=== PATIENT | female | born 1940 | race Caucasian/White ===

== ENCOUNTER 2020-04-11 00:21 | Inpatient (IN) | payer MEDICARE, BC ==
[2020-04-11 00:53] LABS: #Lymphocytes 0.7 thou/uL (1.20-3.40); #Monocytes 0.6 thou/uL (0.11-0.59); #Neutrophils 12.2 thou/uL (1.40-6.50); %Basophils 0.3 % (0.0-1.0); %Eosinophils 0.2 % (0.0-10.0); %Monocytes 4.5 % (0.0-10.0); %Neutrophils 90.1 % (42.0-75.0); Mean Corpuscular HGB CONC 32.9 g/dL (32.0-36.0); Mean Corpuscular Hemoglobin 29.7 pg (27.0-31.0); Mean Corpuscular Volume 90.4 fL (78.0-98.0); Mean Platelet Volume 7.1 fL (7.4-10.4); Platelet Count 381 thou/uL (130-400); RBC Distribution Width 13.8 % (11.5-14.5); Red Blood Cell (RBC) Count 3.36 mill/uL (4.20-5.40); White Blood Cell (WBC) Count 13.5 thou/uL (4.8-10.8)
[2020-04-11] MEDS ORDERED: Diltiazem HCl 125 MG, Admixture Fee 1 EACH in Sodium Chloride 0.9% 100 ML IVPB SCH (01:00)
[2020-04-11] MEDS ORDERED: Fentanyl 100 MCG/2 ML VIAL ONE (01:13)
[2020-04-11 01:14] LABS: INR-International Normal Ratio 2.5; PTT 43.9 sec (22.9-36.1); Prothrombin Time 27.3 sec (12.0-14.7)
[2020-04-11 01:16] LABS: ALT (SGPT) 21 U/L (8-55); AST (SGOT) 18 U/L (5-34); Albumin 3.4 g/dL (3.4-4.8); Alkaline Phosphatase 129 U/L (40-110); Anion Gap 16 mmol/L (10-20); BUN (Urea Nitrogen) 12 mg/dL (9.8-20.1); Bilirubin, Total 0.5 mg/dL (0.2-1.2); Calc. Creatinine Clearance 0 mL/min (70-130); Calcium 8.9 mg/dL (7.8-10.44); Carbon Dioxide 24 mmol/L (23-31); Chloride 101 mmol/L (98-107); Estimated GFR-MDRD 72; Glucose 209 mg/dL (83-110); Potassium 3.7 mmol/L (3.5-5.1); Protein, Total 7.4 g/dL (6.0-8.3); Sodium 137 mmol/L (136-145)
[2020-04-11] MEDS ORDERED: Ondansetron PF 4 MG/2 ML Vial ONE ×2 (01:39→02:11)
[2020-04-11 01:53] LABS: Phosphorus 2.9 mg/dL (2.3-4.7)
[2020-04-11] MEDS ORDERED: Dextrose 50% Abboject 50 ML SYRINGE SLOW IVP PRN (02:37)
[2020-04-11] MEDS ORDERED: Promethazine HCl 25 MG/ML VIAL IM PRN (02:37)
[2020-04-11] MEDS ORDERED: Dextrose 5% in Water 1,000 ML IV PRN (02:37)
[2020-04-11] MEDS ORDERED: Morphine 2 MG/ML VIAL SLOW IVP PRN (02:37)
[2020-04-11] MEDS ORDERED: Ondansetron PF 4 MG/2 ML Vial IVP PRN (02:37)
[2020-04-11] MEDS ORDERED: Promethazine HCl 25 MG/ML VIAL ONE (02:44)
[2020-04-11 02:57] LABS: Hemoglobin A1c 5.4 % (4.0-6.0)
[2020-04-11] MEDS ORDERED: Cyclobenzaprine 10 MG TAB PO PRN (03:21)
[2020-04-11] MEDS ORDERED: Ibuprofen 600 MG TAB PO PRN (03:21)
[2020-04-11] MEDS ORDERED: traMADol HCl 50 MG TAB PO PRN (03:21)
--- NOTE | 2020-04-11 04:22 | HP ---
REQUESTING PHYSICIAN: Dr. Donovan. CONSULTS: Orthopedic Surgery, Dr. Manzano. PRIMARY CARE PHYSICIAN: None. LIQUID CENTER ASSEMBLER: Dr. Barnes at [facility]. CHIEF COMPLAINT: 1. Mechanical fall, no loss of consciousness, on Coumadin. 2. Atrial fibrillation with rapid ventricular response. HISTORY OF PRESENT ILLNESS: This is an 79-year-old female who presented to the emergency room after a ground level fall from her home. The patient does live in [place] alone, but her family checks on her multiple times a day. The patient reports that she was in her kitchen when she went to turn, she lost her balance, caused her to fall onto her right hip. The patient denies hitting her head or any loss of consciousness. The patient denies feeling weak, dizzy, lightheaded, or having shortness of breath or chest pain prior to falling. The patient was unable to ambulate and laid on the floor for approximately an hour until family arrived. The patient denies any other injuries. 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 The patient has not seen her primary the patient care physician in several years. The patient last saw her lard renderer in February. The patient states that she has not gotten out of the house due to the COVID pandemic. The patient reports approximately 6-8 months ago the squamous cell carcinoma onto her neck got worse. The patient has been treating the wound with Neosporin. Family has not seen the wound as the patient keeps it covered. The patient also reports severe worsening within the last month, in which the wound has gotten deeper and has spread. The patient also reports over the last month she has had facial drooping on the left side. The patient has also had vision changes and cannot close her left eye for the last three weeks. The patient also was in atrial fibrillation with rapid ventricular response at a rate of 130s. The patient was also given Cardizem 15 mg by EMS and started on a Cardizem drip at 5 mg an hour. The patient's rate is currently controlled at 107 and remains on a Cardizem drip at 7.5 mg an hour. The patient denies a history of diabetes, although her blood sugar is elevated. The patient was given 1 L normal saline bolus, Phenergan for nausea, Zofran, fentanyl 50 mcg for pain. REVIEW OF SYSTEMS: A 10-point review of systems is negative unless otherwise indicated in the above HPI. ALLERGIES: NO KNOWN DRUG ALLERGIES. MEDICATIONS: 1. Warfarin 5 mg once a day. 2. Diltiazem XR 180 once a day. 3. Lisinopril/hydrochlorothiazide 10/12.5 daily. 4. Calcium 500 mg daily. PAST MEDICAL HISTORY: Atrial fibrillation diagnosed in 2006, squamous cell carcinoma of left neck diagnosed in 2006, and hypertension. SURGICAL HISTORY: Cholecystectomy. SOCIAL HISTORY: The patient lives at home alone, denies alcohol use, denies illicit drug use, denies tobacco use. OBJECTIVE: VITAL SIGNS: Blood pressure 140/65, pulse 108, respirations 18, SpO2 of 94%, temperature 99.6. GENERAL: Elderly female, awake, alert, in no distress. HEENT: Head is atraumatic, extensive decay to the left lateral face involving the anterior angle of the mandible extending to the posterior neck. Decay goes to the subcutaneous tissue, muscle exposed in some areas, no visible bone, no surrounding redness noted. Left-sided facial droop, unable to lift eyebrow, unable to close left eye, left eye appears red with excessive tearing, reports visual changes in the left eye, extraocular muscles are intact, pupils are equal bilateral. ENT: Nose exam is normal, pharynx exam normal, no oral involvement, mucous membranes slightly dry, no difficulty swallowing, about half of the external auricle is decayed to the level of the tragus. The patient reports some hearing loss in her left ear. NECK: No cervical spine tenderness. Trachea is midline. RESPIRATORY: No respiratory distress, bilateral breath sounds clear, no wheezing, rales, or rhonchi. CARDIOVASCULAR: Irregularly irregular rate, tachycardic, no pedal edema. ABDOMEN: Soft, nontender, nondistended. PELVIS: Stable, tenderness to palpation, right hip. EXTREMITIES: Moves all extremities, neurovascularly intact x4, right lower extremity externally rotated. Mild shortening. NEUROLOGIC: GCS 15. Left-sided facial asymmetry, chronic. LABORATORY DATA: WBC 13.5, RBC 3.36, hemoglobin 10.0, hematocrit 30.3, platelets 380, PT 27.3, INR 2.5, APTT 43.9. Sodium 137, potassium 3.7, chloride 101, BUN 12, creatinine 0.77, estimated GFR 72. Glucose 209. Hemoglobin A1c 5.4. Lactate 1.4, calcium 8.9, magnesium 2.0, AST 18, ALT 21, alkaline phos 129, albumin 3.4. A 12-lead EKG, atrial fibrillation, no T-wave or ST-segment abnormality. Brain CT, no intracranial abnormalities. Chest x-ray pending. Right hip x-ray, right hip fracture. The official read is pending. ASSESSMENT: 1. Mechanical fall, on Coumadin. 2. Atrial fibrillation with rapid for ventricular response, currently rate controlled. 3. Large area of skin decay to the left face and back. 4. Right hip fracture. 5. Hyperglycemia, likely secondary to large skin decay. 6. History of atrial fibrillation, on Coumadin. 7. Hypertension. 8. Squamous cell carcinoma, left neck and face. PLAN: 1. Admit to the telemetry floor for continuous cardiac monitoring. 2. Continue Cardizem drip 7.5 mg an hour for rate control. 3. N.p.o. with possible plans for repair of right hip fracture by Orthopedic Surgery tomorrow in the morning. 4. Hold Coumadin. 5. Pain control and supportive care. 6. PT and OT to evaluate and treat postop. 7. Wound care to evaluate and treat large skin decay to the left face and neck. 8. Post acute screen as the patient will need rehab for continued physical and occupational therapy. The plan was discussed with the patient and her daughter who agrees. The plan will be discussed with the attending after this dictation. Job ID: [id number] [facility]
[2020-04-11 05:48] VITALS: BMI 27.4
[2020-04-11] MEDS: traMADol HCl 50 MG TAB PO SCH ×4 (06:04→21:53)
[2020-04-11] MEDS: Sodium Chloride 0.9% 1,000 ML IV SCH ×2 (06:15→15:31)
--- NOTE | 2020-04-11 07:11 | CT ---
PRELIMINARY REPORT/[facility]/EMERGENCY AFTER HOURS PROCEDURE: EXAM: CT Head Without Intravenous Contrast. CLINICAL HISTORY: 79 yo F with hx of afib on dilt and VKA and HTN on lisinopril presents via EMS after a mechanical fal l at home, tripped over uneven floor and feel; could not get up; crawled to the wall and flicked the light on and off until a neighbor saw and came for help. Now complains of right hip pain. Notable she has not seen a PCP in a very long but thinks she has cancer on the side of her face. TECHNIQUE: Axial computed tomography images of the head/brain without intravenous contrast. COMPARISON: None provided. FINDINGS: BRAIN: No acute intraparenchymal hemorrhage. No mass lesion. No CT evidence for acute territorial infarct. N o midline shift or extra-axial collection. Mild prominence of the sulci and ventricles. Mild subcor tical and periventricular white matter hypodensities. Arteriosclerosis. VENTRICLES: No hydrocephalus. ORBITS: The orbits are unremarkable. SINUSES AND MASTOIDS: The paranasal sinuses and mastoid air cells are clear. SOFT TISSUES: No significant facial or scalp soft tissue swelling evident. No radiopaque foreign body is seen. BONES: No acute skull fracture. IMPRESSION: No acute intracranial abnormality. Mild generalized cerebral atrophy. Mild subcortical and jv-ventricular white matter changes likely related to chronic ischemic vessel disease. ELECTRONICALLY SIGNED BY: Leoncio Alvarez MD Apr 11, 2020 1:57:41 AM CDT This report is intended for review by the ordering physician only, in accordance of law. If you recei ve this report in error, please call [facility] at [phone]. FINAL REPORT EMERGENCY AFTER HOURS CT OF THE BRAIN WITHOUT CONTRAST: FINDINGS/IMPRESSION: I agree with the findings and impression given in the preliminary report per [facility] physici an. No evidence of acute intracranial abnormality. POS: TIFFANIE
--- NOTE | 2020-04-11 08:15 | RAD ---
RIGHT HIP 2 VIEWS: Date: 04/11/2020 HISTORY: Fall with injury to right hip. Pain. FINDINGS/IMPRESSION: There is a comminuted, displaced intertrochanteric fracture of the right hip. POS: OFF
--- NOTE | 2020-04-11 08:16 | RAD ---
AP PELVIS: HISTORY: Trauma. Injury with pain. FINDINGS: There is a comminuted displaced intratrochanteric fracture involving the right hip. The bony pelvis appears intact. IMPRESSION: Fracture right hip. POS: OFF
[2020-04-11] MEDS: Acetaminophen 500 MG TAB PO SCH ×3 (08:24→17:22)
[2020-04-11] MEDS: Senokot S 8.6-50 MG TAB PO SCH ×2 (08:25→21:52)
[2020-04-11] MEDS: Gabapentin 100 MG CAP PO SCH ×3 (08:25→21:54)
--- NOTE | 2020-04-11 08:25 | RAD ---
PORTABLE CHEST: Date: 04/11/2020 HISTORY: Fall with hip fracture. COMPARISON: 11/29/2008. FINDINGS: Elevated left hemidiaphragm with left basilar atelectasis. Lungs otherwise appear clear. Heart is mil dly enlarged. The vascular markings are mildly engorged. IMPRESSION: Elevated left hemidiaphragm and left basilar atelectasis. Associated infiltrate not excluded. POS: OFF
[2020-04-11] MEDS: Famotidine/PF 20 mg/2ml Vial SLOW IVP SCH ×2 (08:26→21:54)
[2020-04-11] MEDS: Polyethylene Glycol 3350 17 GM Packet PO SCH (08:39)
--- NOTE | 2020-04-11 08:53 | CON ---
DATE OF CONSULTATION: 04/11/2020 CONSULTING PROVIDERS: 1. General Surgery. 2. Trauma Service. HISTORY OF PRESENT ILLNESS: Ms. Rodgers is an 79-year-old female who unfortunately lost her balance yesterday evening and fell. She was walking out of her kitchen when she tripped. She normally walks well with no assistive device. The patient landed on her right side. She had pain with movement. She was unable to get up. She required assistance and was taken to the emergency department by EMS. X-rays demonstrated a right intertrochanteric femur fracture. The patient has been admitted to the hospital. She is currently resting comfortably. Orthopedics has been consulted for her femoral fracture. She is undergoing medical workup. The patient is in chronic atrial fibrillation and is on Coumadin, she has been on Coumadin for many years. Her most recent INR was 2.5. REVIEW OF SYSTEMS: Positive for right hip pain, otherwise negative 10-point review of systems. ALLERGIES: NO KNOWN DRUG ALLERGIES. PAST MEDICAL HISTORY: Atrial fibrillation, on Coumadin for many years; history of squamous cell carcinoma; history of hypertension. PAST SURGICAL HISTORY: Cholecystectomy. SOCIAL HISTORY: The patient denies using any assistive device for ambulation. She denies alcohol, tobacco, or drug use. FAMILY MEDICAL HISTORY: Noncontributory. IMAGING DATA: X-rays of the right hip and pelvis demonstrated intertrochanteric femur fracture without significant displacement. The fracture does appear acute. PHYSICAL EXAMINATION: VITAL SIGNS: Temperature is 98.5, pulse is 107, respiratory rate is 20, oxygen saturation 94%, blood pressure is 142/76. GENERAL: She is alert and oriented, lying supine, in no apparent distress. HEENT: Normocephalic and atraumatic. RESPIRATORY: Breathing comfortably. ABDOMEN: Soft, nontender, and nondistended. CARDIOVASCULAR: Pulses palpable and regular. MUSCULOSKELETAL: Patient's right lower extremity is slightly shortened and externally rotated. She has pain with hip motion. She has pain with rotation. She is neurovascularly intact in the foot and ankle. She has palpable dorsalis pedis pulses. SKIN: Intact. IMPRESSION: Elderly female with right intertrochanteric femur fracture with a history of atrial fibrillation, on Coumadin. PLAN: At this point, I think the patient will benefit from surgical intervention. We will plan for dynamic hip screw fixation to stabilize the femur and allow early mobilization. Goal to prevent complications of prolonged bedrest. Risks have been reviewed with her. Unfortunately, we will be unable to proceed with surgery today because her INR is elevated. I would like this to drift down below 2.0. Once it is below 2, hopefully by tomorrow, we will proceed with surgery. She will have ongoing medical optimization and appropriate consultation services. She will be n.p.o. at midnight tonight. She should have DVT prophylaxis and antibiotic prophylaxis for surgery. Job ID: [id number]
[2020-04-11] MEDS ORDERED: Phytonadione 5 MG in Sodium Chloride 0.9% 50 ML IVPB SCH ×2 (09:00→15:00)
[2020-04-11] MEDS ORDERED: Metoprolol Tartrate 25 MG TAB PO SCH (09:00)
[2020-04-11] MEDS ORDERED: FLU VACC QS2020-21(65YR UP)/PF 240 MCG/0.7 ML SYRINGE IM ONE (09:00)
--- NOTE | 2020-04-11 18:36 | PRG ---
DATE OF SERVICE: 04/11/2020 SUBJECTIVE: The patient was seen this morning during rounds. She was lying in bed with no signs of acute distress. She reported her pain is well controlled. Her daughter was at the bedside. Reports that in 2017 or 2018, the patient had a diagnosis of squamous cell carcinoma to the left neck, but was not referred to an oncologist and has not had treatment. The patient does not regularly see a PCP, but sees her renewable energy engineer once a year. The patient lives independently and generally keeps her wound on the left side of her face covered. She fell on Coumadin and is pending INR normalization to go to the OR with Orthopedic Surgery for fixation of a right hip fracture. Upon our evaluation, she had no complaints. Her heart rate was in the 60s to 70s. Cardizem drip was discontinued and she was placed back on her home p.o. diltiazem. OBJECTIVE: VITAL SIGNS: Temperature 97.6, pulse 90, respirations 18, oxygen saturation 95% on 2 L nasal cannula, blood pressure 119/60. GENERAL: Well-appearing elderly female, lying in bed, resting comfortably with no signs of acute distress. PULMONARY: Equal chest rise and fall. Clear breath sounds bilaterally. No signs of acute respiratory distress. CARDIAC: Irregularly irregular rhythm. No murmurs, gallops, or rubs. GI: Abdomen is soft, nontender, nondistended. EXTREMITIES: 2+ pulses in all extremities. Gross motor and sensation are intact. No significant swelling noted. SKIN: The patient has a large wound to the left side of the neck, face, and ear that appears to be necrotizing. This is a chronic wound. LABORATORY FINDINGS: There are no new laboratory findings to discuss. DIAGNOSTIC FINDINGS: Echo completed today demonstrates EF of 45% to 50%, diastolic dysfunction indeterminate due to atrial fibrillation, dilated right ventricle, normal right ventricle systolic function, moderately dilated left atrium, moderately enlarged right atrium/mitral annular calcification is present, mild to moderate mitral regurgitation. Aortic valve sclerosis, but opens well. Moderate tricuspid regurgitation, elevated right ventricular systolic pressure estimated at 45 mmHg. Mild pulmonic regurgitation. ASSESSMENT: 1. Status post ground level fall, on Coumadin. 2. Right hip fracture. 3. Atrial fibrillation, rapid ventricular response, now rate controlled. 4. Chronic wound to left neck and ear, status post squamous cell carcinoma diagnosis in 2006. 5. History of atrial fibrillation, hypertension, and chronic neck wound. PLAN: The patient to have a regular diet. N.p.o. after midnight. Discontinue IV fluids. Oral pain medication. Metformin as needed for pain control. Restart the patient's home diltiazem. We have consulted Oncology, ENT, and palliative care. Repeat INR in the morning with additional blood work, goal is to be 2 or less. This patient was seen and evaluated by Dr. Arroyo this morning during rounds. Job ID: [id number]
--- NOTE | 2020-04-11 21:04 | CON ---
DATE OF CONSULTATION: REASON FOR CONSULTATION: Neglected squamous cell carcinoma. HISTORY OF PRESENT ILLNESS: Ms. Rodgers is an 79-year-old female who presented to the emergency room after a fall at her home. She had x-rays which showed a right intertrochanteric femur fracture. She was also in atrial fibrillation with RVR and started on diltiazem drip and admitted. Her surgery for her hip has been postponed until her INR was improved. She is on Coumadin for atrial fibrillation. Unfortunately, the patient was diagnosed with squamous cell carcinoma of the left neck in 2008. She did not receive any treatment. This appears to have been a skin cancer. She is a very poor historian. She has associated left facial droop. The neglected wound has started to erode her earlobe. She does admit to hearing loss in the ear. She states that she has had an open wound for several months, has been treating it with Neosporin. She has scleral edema of left eye and admits to occasional blurred vision. She underwent a CT scan of her brain, which showed no abnormalities. She states she has been independent, lives alone, and able to care for ADLs. She does have occasional pain. PAST MEDICAL HISTORY: 1. Atrial fibrillation. 2. Hypertension. 3. History of squamous cell carcinoma. PAST SURGICAL HISTORY: Cholecystectomy. ALLERGIES: NO KNOWN DRUG ALLERGIES. HOME MEDICATIONS: 1. Coumadin 5 mg daily. 2. Diltiazem 180 mg daily. 3. Lisinopril-hydrochlorothiazide daily. 4. Calcium daily. FAMILY HISTORY: No known history of cancer. SOCIAL HISTORY: . Lives alone with her family close by. No alcohol, tobacco, or illicit drug use. States she has not seen her physician in many years. REVIEW OF SYSTEMS: 12-point review of systems is negative except for noted in HPI. PHYSICAL EXAMINATION: VITAL SIGNS: Temperature 97.6, pulse is 70, respiratory rate 18, blood pressure is 112/59, she is 97% on 2 L. GENERAL: This is a well-developed female, in no acute distress. HEENT: Normocephalic, atraumatic. She has left scleral edema. NECK: A neglected wound on the left mid neck, which extends to mid ear and around to her mandible. Area is beefy red with slight bleeding, muscle is visible with. CV: Regular rate and rhythm. LUNGS: Clear anterior. ABDOMEN: Soft and nontender. Bowel sounds are positive. EXTREMITIES: She has pain in her right lower extremity. NEUROLOGIC: She has a left facial droop and blurred vision of her left eye. PERTINENT LABORATORY DATA AND X-RAYS: WBCs are 13.5, hemoglobin 10, hematocrit 30.3, platelet count 381,000. She has 90% neutrophils, 5% lymphocytes. PT is 27.3, INR is 2.5, PTT is 43.9. Sodium 137, potassium 3.7, chloride 101, CO2 is 24, BUN is 12, creatinine 0.77, lactic acid 1.4, calcium 8.9, bilirubin 0.5, AST is 18, ALT is 21, alkaline phosphatase is 129. Serum total protein 7.4, albumin 3.4, globulin 4. Radiology, per HPI. ASSESSMENT: 1. Neglected malignant lesion of the left neck and face, possibly squamous cell carcinoma. 2. Right femur fracture status post fall. DISCUSSION: The patient's left neglected left neck and facial cancer, most likely her squamous cell carcinoma. A biopsy is needed to confirm diagnosis. It clearly has invasion to the facial nerves as she is unable to close her left eyelid and has left facial droop. ENT has been consulted for their assistance. I did discuss with the patient that this is likely a cancer and that if she choose to pursue treatment after biopsy and scans, it would most likely include chemotherapy. She states she is interested in pain control and going home. She does have a daughter coming tomorrow and will discuss with her. Hospice may be the best option. I agree with Palliative Care consultation to help the patient to understand diagnosis and clarify goals of care. The patient's pain was currently controlled. The case has been discussed with Dr. Valdes, and we will follow along with her hospitalization. Thank you for the consult. Job ID: [id number] MTDD
[2020-04-12] MEDS: Acetaminophen 500 MG TAB PO SCH ×4 (00:32→18:42)
--- NOTE | 2020-04-12 02:17 | CON ---
DATE OF CONSULTATION: BRIEF HISTORY: This 79-year-old female who was told of a diagnosis of a cancer that she is unaware of what origin of the left face and left neck. She reports this started approximately 2 years ago and she reports that she did not ever see a surgical consultation due to travel limitations and also the patient at that time had chosen not to pursue treatment for this lesion. Over the past year, the mass has turned into an extremely necrotic and invasive lesion involving her left face. She is presenting to the hospital after a hip fracture and currently planned for ORIF of hip fracture tomorrow. PAST MEDICAL HISTORY: Hypertension. PAST SURGICAL HISTORY: No history of head and neck surgeries to our knowledge or patient's knowledge. MEDICATIONS: See attached medication list. PHYSICAL EXAMINATION: Patient is resting comfortably in bed. 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 Overall, the mass is 20 cm x 15 cm with no overlying skin left in this area. Nasal cavity is clear anteriorly . Flexible laryngoscopy was performed at bedside, which shows no mucosal lesions of nasal cavity, nasopharynx, bilateral true vocal cords, base of tongue, tonsils and piriform sinus and hypopharyngeal mucosa are all intact. 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 An incisional biopsy was performed at the bedside today. I will review the pathology and review radiology on Tuesday and continue and begin discussions on the patient regarding her diagnosis. This is most likely a nonsurgical resectable lesion and palliative radiation or chemotherapy will likely be her only option. Job ID: [id number]
[2020-04-12] MEDS: traMADol HCl 50 MG TAB PO SCH ×4 (03:52→20:19)
[2020-04-12 04:23] LABS: #Eosinphils 0.2 thou/uL (0.0-0.7); #Monocytes 0.7 thou/uL (0.11-0.59); #Neutrophils 4.6 thou/uL (1.40-6.50); %Basophils 0.5 % (0.0-1.0); %Eosinophils 2.3 % (0.0-10.0); %Lymphocytes 15.3 % (21.0-51.0); %Monocytes 10.2 % (0.0-10.0); %Neutrophils 71.6 % (42.0-75.0); Hemoglobin 9.9 g/dL (12.0-16.0); Mean Corpuscular HGB CONC 31.6 g/dL (32.0-36.0); Mean Corpuscular Hemoglobin 29.3 pg (27.0-31.0); Mean Corpuscular Volume 92.7 fL (78.0-98.0); Mean Platelet Volume 6.9 fL (7.4-10.4); Platelet Count 340 thou/uL (130-400); RBC Distribution Width 14.1 % (11.5-14.5); Red Blood Cell (RBC) Count 3.39 mill/uL (4.20-5.40); White Blood Cell (WBC) Count 6.5 thou/uL (4.8-10.8)
[2020-04-12 04:28] LABS: INR-International Normal Ratio 1.5; PTT 36.5 sec (22.9-36.1); Prothrombin Time 18.8 sec (12.0-14.7)
[2020-04-12 04:50] LABS: Anion Gap 11 mmol/L (10-20); BUN (Urea Nitrogen) 10 mg/dL (9.8-20.1); Calc. Creatinine Clearance 78 mL/min (70-130); Calcium 8.5 mg/dL (7.8-10.44); Carbon Dioxide 22 mmol/L (23-31); Chloride 104 mmol/L (98-107); Estimated GFR-MDRD 84; Glucose 128 mg/dL (83-110); Magnesium 1.9 mg/dL (1.6-2.6); Phosphorus 3.2 mg/dL (2.3-4.7); Potassium 4.1 mmol/L (3.5-5.1); Sodium 133 mmol/L (136-145)
[2020-04-12] MEDS ORDERED: CEFAZOLIN 2 GM in Premix Bag 1 BAG IVPB SCH (08:00)
[2020-04-12 08:29] LABS: SARS-CoV-2 NAA Rapid Test Not Detected (NotDetected)
[2020-04-12] MEDS ORDERED: Magnesium 2 GM/50 ML 2 GM in Premix Bag 1 BAG IVPB SCH (08:45)
[2020-04-12] MEDS ORDERED: DILTIAZEM HCL 180 MG PO SCH (09:00)
[2020-04-12] MEDS: Famotidine/PF 20 mg/2ml Vial SLOW IVP SCH ×2 (09:01→20:19)
[2020-04-12] MEDS: Senokot S 8.6-50 MG TAB PO SCH ×2 (09:01→20:19)
[2020-04-12] MEDS: Gabapentin 100 MG CAP PO SCH ×3 (09:01→20:20)
[2020-04-12] MEDS: Polyethylene Glycol 3350 17 GM Packet PO SCH (09:01)
[2020-04-12] MEDS ORDERED: Ondansetron PF 4 MG/2 ML Vial ONE (09:20)
[2020-04-12] MEDS ORDERED: Rocuronium Bromide 10 MG/ML (10ML VIAL) ONE (09:20)
[2020-04-12] MEDS ORDERED: Lidocaine 1% PF 5 ML VIAL ONE (09:20)
[2020-04-12] MEDS ORDERED: Dexamethasone 20 MG/5 ML VIAL ONE (09:20)
[2020-04-12] MEDS ORDERED: PHENYLEPHRINE-NS 100 MCG/ML 10 ML SYRINGE ONE (09:20)
[2020-04-12] MEDS ORDERED: PROPOFOL 200 MG/20 ML VIAL ONE (09:20)
[2020-04-12] MEDS ORDERED: Glycopyrrolate 0.2 MG/ML 5 ML SYRINGE ONE (09:20)
[2020-04-12] MEDS ORDERED: Lidocaine 2% Jelly 5 ML TUBE ONE (10:51)
[2020-04-12] MEDS ORDERED: Fentanyl 100 MCG/2 ML VIAL ONE ×2 (10:51→13:51)
[2020-04-12] MEDS ORDERED: Promethazine HCl 25 MG/ML VIAL IM PRN (13:34)
[2020-04-12] MEDS ORDERED: Promethazine HCl 25 MG/ML VIAL SLOW IVP PRN (13:34)
[2020-04-12] MEDS ORDERED: Ondansetron HCl/PF 4 MG/2 ML Vial IVP PRN (13:34)
--- NOTE | 2020-04-12 13:36 | OP ---
DATE OF PROCEDURE: 04/12/2020 PROCEDURE PERFORMED: Right femur intertrochanteric fracture intramedullary nail. PREOPERATIVE DIAGNOSIS: Right femur intertrochanteric fracture. POSTOPERATIVE DIAGNOSIS: Right femur intertrochanteric fracture. COMPLICATIONS: None. ESTIMATED BLOOD LOSS: 150 mL. IMPLANTS: Synthes short trochanteric nail, size 11 mm with helical blade. INDICATIONS FOR OPERATION: Ms. Rodgers is an 79-year-old female, who has fallen and fractured her right intertrochanteric femur. She has been indicated for intramedullary nail fixation to restore anatomic alignment, promote healing, and promote early mobilization. Goal is to prevent complications of prolonged bed rest. DESCRIPTION OF OPERATION: Ms. Rodgers was identified in the preoperative holding area. Her correct extremity was marked. She was carried to the operating room. She was positioned supine. General anesthesia was induced. A multidisciplinary time-out was performed. The right lower extremity was prepped and draped in sterile fashion. We began the procedure with right hip incision. We dissected down through the subcutaneous tissues to the tip of the trochanter. We then used intraoperative x-ray to obtain an appropriate start point for our guidewire. This was inserted from proximal to distal. We overdrilled the guidewire. We then inserted our 11 mm short trochanteric nail. We took x-ray images confirming placement. At this point, we placed a guidewire through our appropriate guide in the centered position of the femoral head. We measured the length and then impacted our helical blade. This was placed in a dynamic position. Finally, we placed a distal Crosslock screw. This completed the operation. We took final x-ray images. We thoroughly irrigated all wounds and closed in layers. A sterile dressing was applied. The academic assistant surgeon was responsible for positioning the patient, preparing the injured extremity, applying the tourniquet, and assisting in preparation for surgery. The academic assistant was instrumental in reducing the injured limb by applying traction and reduction maneuvers as well as holding retractors and reduction tools. The academic assistant also was instrumental in assisting in exposure throughout the operation using appropriate retractors. The academic assistant participated in closure of the operative site as well as dressing application and splint application. Job ID: [id number]
--- NOTE | 2020-04-12 15:44 | RAD ---
Exam: XR Hip Rt 2-3 View HISTORY: Right hip trochanteric nail placement COMPARISON: 04/11/2020. FINDINGS/IMPRESSION: 4 intraoperative fluoroscopic images of the right hip are submitted. An intramedullary cr and dynami c compression screw as well as distal interlocking screw now transfix the previously noted comminuted and displaced intertrochanteric right hip fracture. There is improvement in alignment of t he fracture fragments. Correlation with intraoperative findings is recommended. Fluoroscopy: Time-45.6 seconds Dose-8.86 mGy
--- NOTE | 2020-04-12 16:52 | PRG ---
DATE OF SERVICE: 04/12/2020 SUBJECTIVE: The patient was seen this afternoon postoperatively. She was sitting up in bed with no signs of acute distress. She is after fixation of her right hip fracture by Dr. Kothari. She reports her pain is well controlled and she is hungry. Her daughters at the bedside ordering her lunch. The patient educated on incentive spirometry use. The patient was pulling about 1000. She has been evaluated by ENT and Hematology/Oncology. Palliative Care consult is in. We are pending their evaluation. OBJECTIVE: VITAL SIGNS: Temperature 97.9, pulse 94, respirations 20, oxygen saturation 95% on 2 L nasal cannula, and blood pressure 120/67. GENERAL: Well-appearing elderly female, sitting up in bed, with no signs of acute distress. PULMONARY: Equal chest rise and fall. Clear breath sounds bilaterally. No signs of acute respiratory distress. CARDIAC: Regular rate and rhythm. GI: Abdomen is soft, nontender, and nondistended. EXTREMITIES: 2+ pulses in all extremities. Gross motor and sensations intact. No significant swelling noted. NEUROLOGIC: GCS is 15. SKIN: The patient with large wound to left neck and face with dressing in place. No signs of oozing. DIAGNOSTIC FINDINGS: There are no new diagnostic findings to report. ASSESSMENT: 1. Status post ground-level fall, on Coumadin. 2. Right-sided intertrochanteric femur fracture status post repair. 3. Necrotic wound to the left neck and ear, present on admission. 4. History of atrial fibrillation. 5. Hypertension. 6. Squamous cell cancer since 2008. PLAN: Continue current diet and pain regimen. Continue physical and occupational therapy. Continue home medications as indicated. We will restart the patient on her Coumadin and bridge with Lovenox if she remains hemodynamically stable and there are no signs of blood loss tomorrow. We will start physical and occupational therapy. The patient will likely need discharge to acute rehab facility. She will also receive sodium, phosphorus, and magnesium replacements today. Job ID: [id number]
[2020-04-12] MEDS: CEFAZOLIN 2 GM in Premix Bag 1 BAG IVPB SCH (20:19)
[2020-04-13] MEDS: Acetaminophen 500 MG TAB PO SCH ×4 (00:43→18:21)
[2020-04-13] MEDS: CEFAZOLIN 2 GM in Premix Bag 1 BAG IVPB SCH (05:23)
[2020-04-13] MEDS: traMADol HCl 50 MG TAB PO SCH ×3 (05:24→18:20)
[2020-04-13 05:40] LABS: #Lymphocytes 0.7 thou/uL (1.20-3.40); #Monocytes 0.5 thou/uL (0.11-0.59); #Neutrophils 7.2 thou/uL (1.40-6.50); %Basophils 0.1 % (0.0-1.0); %Eosinophils 0.1 % (0.0-10.0); %Lymphocytes 8.1 % (21.0-51.0); %Monocytes 5.8 % (0.0-10.0); %Neutrophils 85.9 % (42.0-75.0); Hemoglobin 8.5 g/dL (12.0-16.0); Mean Corpuscular HGB CONC 31.9 g/dL (32.0-36.0); Mean Corpuscular Hemoglobin 29.4 pg (27.0-31.0); Mean Platelet Volume 7.3 fL (7.4-10.4); Platelet Count 381 thou/uL (130-400); RBC Distribution Width 13.9 % (11.5-14.5); Red Blood Cell (RBC) Count 2.88 mill/uL (4.20-5.40); White Blood Cell (WBC) Count 8.4 thou/uL (4.8-10.8)
[2020-04-13 05:50] LABS: INR-International Normal Ratio 1.3; Prothrombin Time 16.3 sec (12.0-14.7)
[2020-04-13 05:51] LABS: PTT 41.7 sec (22.9-36.1)
[2020-04-13 06:00] LABS: Anion Gap 10 mmol/L (10-20); BUN (Urea Nitrogen) 10 mg/dL (9.8-20.1); Calc. Creatinine Clearance 80 mL/min (70-130); Calcium 8.1 mg/dL (7.8-10.44); Carbon Dioxide 27 mmol/L (23-31); Chloride 104 mmol/L (98-107); Estimated GFR-MDRD 87; Glucose 181 mg/dL (83-110); Magnesium 2.1 mg/dL (1.6-2.6); Potassium 4.7 mmol/L (3.5-5.1); Sodium 136 mmol/L (136-145)
--- NOTE | 2020-04-13 06:43 | PRG ---
DATE OF SERVICE: 04/13/2020 SUBJECTIVE: The patient is currently on the surgical floor. She is status post ground level fall where she sustained a right intertrochanteric femur fracture. She underwent operative intervention today, which she tolerated well. She originally was admitted to the telemetry floor. She had presented in atrial fibrillation with rapid ventricular response. She has been rate controlled to include postoperatively. Postoperatively, she is tolerating diet. Her pain is controlled. OBJECTIVE: Her vital signs are stable and she is afebrile. ASSESSMENT AND PLAN: The patient also, of note, has undergone evaluation by ENT and Oncology for neck and face squamous cell. She is currently awaiting biopsy results for that. Plan will be to continue supportive care and await placement decision and input from ENT and Oncology. Job ID: [id number]
[2020-04-13] MEDS ORDERED: PHOS-NAK 1 PKT PACK PO SCH (08:30)
[2020-04-13] MEDS: Polyethylene Glycol 3350 17 GM Packet PO SCH (09:08)
[2020-04-13] MEDS: Senokot S 8.6-50 MG TAB PO SCH (09:09)
[2020-04-13] MEDS: Famotidine/PF 20 mg/2ml Vial SLOW IVP SCH ×2 (09:09→20:59)
[2020-04-13] MEDS: Gabapentin 100 MG CAP PO SCH ×3 (09:09→20:59)
--- NOTE | 2020-04-13 15:50 | PRG ---
DATE OF SERVICE: 04/13/2020 SUBJECTIVE: The patient was seen this morning during rounds. She was sitting up in bed, getting ready to work with Physical Therapy. She reported she slept well overnight and states her pain is well controlled. Denies nausea, vomiting, chest pain, shortness of breath, dizziness, lightheadedness, weakness, fatigue. OBJECTIVE: VITAL SIGNS: Temperature 97.9, pulse 91, respirations 16, oxygen saturation 93% on room air, blood pressure 111/68. GENERAL: Well-appearing elderly female, sitting up in bed with no signs of acute distress. PULMONARY: Equal chest rise and fall, clear breath sounds bilaterally. No signs of acute respiratory distress. CARDIAC: Regular rate and rhythm. GI: Abdomen soft, nontender, nondistended. EXTREMITIES: 2+ pulses in all extremities. Gross motor and sensations intact. No significant swelling noted. NEUROLOGIC: GCS is 15. Face, patient has left-sided facial and neck wound which is chronic with left-sided facial droop and eye droop. This is chronic as well. LABORATORY FINDINGS: White count 8.4, hemoglobin 8.5, hematocrit 26.5, platelets 281. Sodium 136, potassium 4.7, chloride 104, bicarb 27, BUN 10, creatinine 0.65, glucose 181. Phosphorus 3.0, magnesium 2.1. DIAGNOSTIC FINDINGS: There are no new diagnostic findings to report. ASSESSMENT: 1. Status post ground level fall on Coumadin. 2. Right intertrochanteric femur fracture, status post repair. 3. Atrial fibrillation, RVR, rate controlled. 4. Necrotic wound to left neck and ear. 5. History of atrial fibrillation, hypertension, squamous cell carcinoma of the neck diagnosed in 2008. PLAN: Continue current diet and pain regimen. Continue physical and occupational therapy. Continue to watch hemoglobin and vital signs. We will continue to hold Coumadin for another day as the patient's hemoglobin dropped by more than 1 postoperatively. The patient is pending discharge to acute rehab facility. We are also waiting for further recommendations from ENT and Oncology for the patient's left-sided wound likely due to skin cancer. Job ID: [id number]
[2020-04-13] MEDS ORDERED: traMADol HCl 50 MG TAB PO SCH ×2 (23:59)
[2020-04-14] MEDS: Senokot S 8.6-50 MG TAB PO SCH ×3 (00:17→21:52)
[2020-04-14] MEDS: Acetaminophen 500 MG TAB PO SCH ×4 (00:18→18:50)
[2020-04-14] MEDS: traMADol HCl 50 MG TAB PO SCH ×4 (00:18→18:51)
[2020-04-14 05:08] LABS: Hemoglobin 7.7 g/dL (12.0-16.0); Mean Corpuscular HGB CONC 31.7 g/dL (32.0-36.0); Mean Corpuscular Hemoglobin 29.7 pg (27.0-31.0); Mean Corpuscular Volume 93.6 fL (78.0-98.0); Mean Platelet Volume 6.9 fL (7.4-10.4); Platelet Count 369 thou/uL (130-400); RBC Distribution Width 13.8 % (11.5-14.5); White Blood Cell (WBC) Count 7.4 thou/uL (4.8-10.8)
[2020-04-14 05:14] LABS: INR-International Normal Ratio 1.4; PTT 37.6 sec (22.9-36.1); Prothrombin Time 17.3 sec (12.0-14.7)
[2020-04-14 05:40] LABS: Anion Gap 11 mmol/L (10-20); BUN (Urea Nitrogen) 15 mg/dL (9.8-20.1); Calc. Creatinine Clearance 68 mL/min (70-130); Calcium 8.4 mg/dL (7.8-10.44); Carbon Dioxide 27 mmol/L (23-31); Chloride 101 mmol/L (98-107); Estimated GFR-MDRD 72; Glucose 150 mg/dL (83-110); Phosphorus 2.9 mg/dL (2.3-4.7); Potassium 4.6 mmol/L (3.5-5.1); Sodium 134 mmol/L (136-145)
[2020-04-14] MEDS ORDERED: PHOS-NAK 1 PKT PACK PO SCH (07:45)
[2020-04-14] MEDS: Famotidine/PF 20 mg/2ml Vial SLOW IVP SCH (08:30)
[2020-04-14] MEDS: Gabapentin 100 MG CAP PO SCH ×3 (08:30→20:48)
[2020-04-14] MEDS: Polyethylene Glycol 3350 17 GM Packet PO SCH (08:31)
[2020-04-14] MEDS: Famotidine 20 MG TAB PO SCH ×2 (09:15→20:49)
[2020-04-14] MEDS: Metoprolol Tartrate 25 MG TAB PO SCH ×2 (09:35→20:49)
[2020-04-14] MEDS: Aspirin 81 mg Enteric Coated Tablet PO SCH ×2 (09:36→20:48)
--- NOTE | 2020-04-14 14:16 | PDOC.FMACP ---
Advance Care Planning - Note Summary: Advanced Care Planning was discussed. The diagnosis, prognosis and goals of care were discussed. Appropriate forms and documentation to accomplish the goals of care were discussed. All questions were answered. The Palliative Care Team will be engaged to assist with completion of any outstanding forms that are needed.
--- NOTE | 2020-04-14 14:18 | PDOC.FMACP ---
Advance Care Planning - Problem (1) Hip fracture, right Status: Acute Code(s): S72.001A - FRACTURE OF UNSP PART OF NECK OF RIGHT FEMUR, INIT (2) Atrial fibrillation Status: Acute Code(s): I48.91 - UNSPECIFIED ATRIAL FIBRILLATION (3) Squamous cell carcinoma Status: Acute Code(s): YAS6550 - (4) Palliative care encounter Status: Acute Code(s): Z51.5 - ENCOUNTER FOR PALLIATIVE CARE - Note Participants: patient, palliative care Summary: Palliative Care introduced Advanced Care Planning. The diagnosis, prognosis and goals of care were discussed. Appropriate forms and documentation to accomplish the goals of care were discussed. All questions were answered. Confirmed patient lived independently in a private home setting. Palliative Care completed MPOA and left Directive to Physician. Ms Rodgers states "I know what I want, but want to discuss and complete when my daughter is here". Directive information left for review. *Palliative Care will follow up 04/15 when patient daughter arrives and c omplete Directive to Physician and readdress resuscitation status. *Will further address GOC paired with patient age, multiple morbidities and impact of coumadin therapy paired with declining functional status. *CM note states referral sent to SNF for skilled inquiry. Please also refer to Palliative Care notes in note section. Time Spent (mins): 20
--- NOTE | 2020-04-14 19:03 | PRG ---
DATE OF SERVICE: 04/14/2020 SUBJECTIVE: The patient was seen this morning during rounds. Earlier in the morning, nurse reported the patient is tachycardic with heart rate in the 120s. EKG demonstrated atrial fibrillation. The patient previously on diltiazem. This is the second time she has not been rate controlled. She received 12.5 mg of p.o. metoprolol and she is now rate controlled. At the time of our evaluation, she reported no pain. She was asking to be discharged. We told her that we would like ENT, Hem/Onc, and palliative care to give further recommendations based off her biopsy results. She was in agreement to hear them out. OBJECTIVE: VITAL SIGNS: Temperature 98.7, pulse 91, respirations 15, oxygen saturation 94% on room air, blood pressure 135/77. GENERAL: Well-appearing elderly female, sitting up in bed with no signs of acute distress. PULMONARY: Equal chest rise and fall. Clear breath sounds bilaterally. No signs of acute respiratory distress. CARDIAC: Regular rate and rhythm. GI: Abdomen is soft, nontender, nondistended. EXTREMITIES: 2+ pulses in all extremities. Gross motor and sensation are intact. SKIN: The patient has open necrotic wound to left face, ear, and neck. This is stable. LABORATORY FINDINGS: White count 7.4, hemoglobin 7.7, hematocrit 24.3, platelets 369. Sodium 134, potassium 4.6, chloride 101, bicarb 27, BUN 15, creatinine 0.77, glucose 150, phosphorus 2.9, magnesium 2.0. DIAGNOSTIC FINDINGS: There are no new diagnostic findings to report. ASSESSMENT: 1. Status post ground level fall, on Coumadin. 2. Right intertrochanteric femur fracture, status post repair. 3. Atrial fibrillation, RVR. 4. Necrotic left-sided neck and face wound. 5. History of atrial fibrillation, hypertension, squamous cell carcinoma to left neck in 2008. 6. Acute blood loss anemia. PLAN: Continue current diet and pain regimen. Add metoprolol 12.5 mg b.i.d. with hold parameters as this is the second time the patient has gone into uncontrolled atrial fibrillation. We will send her to see Dr. Levi Barnes one week after discharge. 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 We are pending further recommendations by ENT and Hem/Onc before discharge as the patient does not follow up and we want to make sure that she has all of the information needed to make the best decisions for her left-sided necrotic neck wound. Palliative Care is also evaluating. At the time when she is ready for discharge, she will go to [facility] [place] bed. In the meantime, the patient will be on aspirin as her hemoglobin continues to downtrend. We will restart her Coumadin and bridge once her hemoglobin has stabilized. This patient was seen and evaluated by Dr. Arroyo and myself this morning during rounds. Job ID: [id number] [facility]
[2020-04-15] MEDS: Acetaminophen 500 MG TAB PO SCH ×5 (00:13→23:26)
[2020-04-15] MEDS: traMADol HCl 50 MG TAB PO SCH ×4 (00:13→17:45)
[2020-04-15 06:02] LABS: Hemoglobin 7.7 g/dL (12.0-16.0); Mean Corpuscular HGB CONC 30.8 g/dL (32.0-36.0); Mean Corpuscular Hemoglobin 28.8 pg (27.0-31.0); Mean Corpuscular Volume 93.3 fL (78.0-98.0); Mean Platelet Volume 7.2 fL (7.4-10.4); Platelet Count 451 thou/uL (130-400); RBC Distribution Width 14.1 % (11.5-14.5); Red Blood Cell (RBC) Count 2.67 mill/uL (4.20-5.40); White Blood Cell (WBC) Count 7.6 thou/uL (4.8-10.8)
[2020-04-15 06:48] LABS: INR-International Normal Ratio 1.3; Prothrombin Time 16.6 sec (12.0-14.7)
[2020-04-15 06:49] LABS: PTT 42.3 sec (22.9-36.1)
[2020-04-15] MEDS: Famotidine 20 MG TAB PO SCH ×2 (07:30→20:28)
[2020-04-15] MEDS: Aspirin 81 mg Enteric Coated Tablet PO SCH (07:30)
[2020-04-15] MEDS: Gabapentin 100 MG CAP PO SCH ×3 (07:31→20:28)
[2020-04-15] MEDS: Polyethylene Glycol 3350 17 GM Packet PO SCH (07:31)
[2020-04-15] MEDS: Senokot S 8.6-50 MG TAB PO SCH ×2 (07:31→22:47)
[2020-04-15] MEDS: Metoprolol Tartrate 25 MG TAB PO SCH ×2 (07:31→20:28)
--- NOTE | 2020-04-15 08:46 | PRG ---
DATE OF SERVICE: 04/15/2020 SUBJECTIVE: Marita is an 79-year-old female postop day 3 from a right hip short trochanteric nail fixation for intertrochanteric hip fracture. She is ambulating distances between 16 and 20 feet. Palliative Care has been consulted and she is relatively slow to get around and move. OBJECTIVE: VITAL SIGNS: Temperature 98.2, pulse 88, respiratory rate 20, blood pressure is 115/62. She is alert and oriented to person, place, time, and situation. Responsive and appropriate with examiner. Incision is clean. Little bit of drainage is noted at the superior aspect of the 2 incisions. We will remove this and re-dress. LABORATORY DATA: Hemoglobin and hematocrit 7.7 and 24.9. IMPRESSION: 1. An 79-year-old female postop day 3 right hip trochanteric nail fixation for intertrochanteric fracture. 2. Hyperglycemia. 3. Mild hyponatremia. 4. The patient is slow to progress with ADLs and independence with ambulation. PLAN: 1. Either inpatient skilled facility or rehabilitation would be best. 2. Continue current care. Continue to follow for hemorrhage and pain control. Job ID: [id number]
[2020-04-15] MEDS: Enoxaparin Sodium 80 MG/0.8 ML SYRINGE SC SCH ×2 (10:02→20:29)
[2020-04-15] MEDS: Ascorbic Acid 500 mg Chewable Tablet PO SCH ×2 (10:11→20:28)
[2020-04-15] MEDS: Ferrous Sulfate 325 MG TAB PO SCH ×2 (10:11→20:28)
[2020-04-15 11:35] LABS: Iron 27 ug/dL (50-170); Iron Binding Capacity, Total 245 mcg/dL (265-497)
[2020-04-15 11:55] LABS: Ferritin 78.13 ng/mL (10-291)
--- NOTE | 2020-04-15 14:13 | PRG ---
DATE OF SERVICE: 04/15/2020 Patient was seen with Dr. Mati Arroyo on morning rounds. SUBJECTIVE: Ms. Rodgers is an 79-year-old female who is hospital day #4 post injury day #4, history of atrial fibrillation, fall, with operative repair to her right intertrochanteric femur, found this morning sitting up in bed, in no acute distress. She states that she feels better. Hemoglobin has been stable. The patient has had a biopsy of her necrotic wound to the left side of her face and we are waiting on pathology results. ENT and Heme-Onc consultation. Verbalized understanding the same. Pain is generally controlled. We are pending approval for [facility] that she has actually been approved for. OBJECTIVE: VITAL SIGNS: Temperature is 98.2, blood pressure 115/62, heart rate is 88, respiratory rate is 20, saturating 94% on 1 L oxygen nasal cannula. GENERAL: An 79-year-old female, sitting up, no acute distress. HEENT: Has left-sided facial droop and dressings noted to the left side of the face and neck. Trachea is midline. RESPIRATORY: Equal rise and fall. No respiratory distress. CARDIOVASCULAR: Regular rhythm. NEUROLOGIC: Alert and oriented. GCS is 15. PSYCHIATRIC: Normal mood and affect. LABORATORY DATA: Today white blood cell count is 7.6, platelets are 451. Hemoglobin and hematocrit are 7.7 and 24.9 respectively. Chemistries: Folate of 12.4, vitamin B12 of 1651, ferritin is 78.3. INR is 1.3 today. ASSESSMENT: 1. Status post fall on Coumadin. 2. Right intertrochanteric femur fracture status post ORIF. 3. Atrial fibrillation with RVR, improved rate control. 4. Necrotic left-sided neck and face wound likely neoplastic in nature. 5. History of hypertension, squamous cell carcinoma of the left neck in 2009, acute blood loss anemia. PLAN: 1. ENT and Heme-Onc are consulted, appreciate recommendations once pathology is back. 2. Continue pain regimen. 3. Unsure if patient will want treatment, but need to have the same. 4. Has been approved for [facility]. She will be discharged once her workup in the hospital is complete. 5. Hemoglobin is stable. Therefore, we will bridge her with Lovenox back to her Coumadin. I have discussed with pharmacy and they are going to dose this. Appreciate their assistance. 6. Continue all other supportive care. I answered questions of the patient at the bedside. No family to update at this time. Coordinated with bedside RN. Job ID: [id number]
[2020-04-15] MEDS: Warfarin Sodium 5 MG TAB PO SCH (17:44)
[2020-04-16] MEDS: traMADol HCl 50 MG TAB PO SCH ×5 (00:18→23:48)
[2020-04-16] MEDS: Acetaminophen 500 MG TAB PO SCH ×5 (05:45→23:49)
[2020-04-16] MEDS: Gabapentin 100 MG CAP PO SCH ×3 (08:21→21:25)
[2020-04-16] MEDS: Senokot S 8.6-50 MG TAB PO SCH ×2 (08:21→21:24)
[2020-04-16] MEDS: Polyethylene Glycol 3350 17 GM Packet PO SCH (08:22)
[2020-04-16] MEDS: Famotidine 20 MG TAB PO SCH ×2 (08:22→21:25)
[2020-04-16] MEDS: Ferrous Sulfate 325 MG TAB PO SCH ×2 (08:22→21:25)
[2020-04-16] MEDS: Ascorbic Acid 500 mg Chewable Tablet PO SCH ×2 (08:22→21:25)
[2020-04-16] MEDS: Metoprolol Tartrate 25 MG TAB PO SCH ×2 (08:22→21:26)
[2020-04-16] MEDS: Enoxaparin Sodium 80 MG/0.8 ML SYRINGE SC SCH ×2 (08:23→21:24)
--- NOTE | 2020-04-16 11:23 | PDOC.PALCO ---
Palliative Care Consult - Consult Details Requesting Physician: Trauma Services Reason for Consult: goals of care, advance directives assistance, family support, complex decision-making - Pertinent HPI Ms Rodgers is an 79 year old female who experienced a mechanical fall in her private home setting in [place], family close in proximity with frequent contact. Known Coumadin therapy, negative for loss of consciousness. On presentation to the emergency room she was also noted to have extensive deterioration of left aspect of face, diagnosed with squamous cell carcinoma in 2006 withe no follow up. Has been isolated since August secondary to Covid pandemic. Ms Bev villafuerte area has progressed in last month, she has kept it covered with gauze and family has not seen. Also in emergency room she was noted to have atrial fibrillation with RVR. She was admitted for right hip fracture secondary to mechanical fall, further evaluation of skin decay to left face and back/suspected squamous cell carcinoma, hyperglycemia, atrial fib. - Pertinent PMH Atrial fibrillation, squamous cell carcinoma diagnosed 2006, hypertension - Social History Smoking Status: Never smoker Smoking: no tobacco exposure Alcohol Use: none Drug Use History: none Living Situation: independent - Medications MAR Reviewed: Yes - Allergies Allergies/Adverse Reactions: Allergies Allergy/AdvReac Type Severity Reaction Status Date / Time No Known Allergies Allergy Unverified 04/11/20 00:58 - Subjective States pain to right hip is a 2 out of 10. Fair appetite, denies any difficulty in intake. Gauze dressing over left area of skin breakdown. Post right hip fixation for fracture. Biopsy pending, oncology seeing patient. Hemoglobin stable. - ROS Constitutional: alert Eyes: other (left ectroprion) ENT: other (denies difficulity swallowing or irritation to throat, hearing loss left ) Respiratory: other (negative for shortness of breath) Cardiology: other (negative for chest discomfort or palpitations) Gastrointestinal: other (negative for nausea or vomiting) Musculoskeletal: limited mobility, other (hip pain/right) Neurological: other (denies numbness to lower extremitites. left facial droop) Skin: other (wound to left aspect of face/refer to wound photo) - Objective Vital Signs: Vital Signs - Most Recent Temp Pulse Resp BP Pulse Ox 97.8 F 100 18 124/77 95 04/16/20 07:36 04/16/20 07:36 04/16/20 07:36 04/16/20 07:36 04/16/20 07:36 Palliative Performance Scale: 50 - Physical Exam Constitutional: NAD, ill appearing Deviation from normal: left visual and hearing changes, facial droop to mouth Respiratory: clear to auscultation bilateral, no wheezing, unlabored breathing Cardiovascular: irregular Gastrointestinal: soft, non-tender, positive bowel sounds Musculoskeletal: no cyanosis, no clubbing, pulses present Neurology: moves all 4 limbs, facial droop Skin: fragile Deviation from normal: left facial decay from mandible to posterior aspect of neck Psychiatric: A&O x 3, normal affect - Problem List (1) Hip fracture, right Code(s): S72.001A - FRACTURE OF UNSP PART OF NECK OF RIGHT FEMUR, INIT Current Visit: Yes Status: Acute (2) Atrial fibrillation Code(s): I48.91 - UNSPECIFIED ATRIAL FIBRILLATION Current Visit: Yes Status: Acute (3) Squamous cell carcinoma Code(s): MWG9479 - Current Visit: Yes Status: Acute (4) Palliative care encounter Code(s): Z51.5 - ENCOUNTER FOR PALLIATIVE CARE Current Visit: Yes Status: Acute - Plan/Recommendations Plan: Confirmed DNAR/OOHDNAR. Confirmed desire to transition to swing bed for/therapy gain strength. Daughter and patient understanding of decline. Goal is to hopefully transition to home setting with home health/ transition to hospice when needed. Discussed continuation of waiting for pathology, not certain if she desires to pursue chemotherapy if able. Concern is decline in swing bed setting and inability to transition to independent home setting, will encourage family and patient to further discuss Goal of Care with the potential of decline and need to transition to live with family under hospice care to manage symptoms. Palliative Care will attempt to have patient complete Directive to physician, especially in the event she is unable to voice her wishes her family will have them documented. Continue to communicate with patient, her children and offer emotional support and therapeutic listening. Pain adequately managed Please also refer to Palliative Care notes in note section [60] minutes spent on this encounter with >50% of the time in counseling and coordination of care. Thank you for this very appropriate consult.
--- NOTE | 2020-04-16 12:37 | PRG ---
DATE OF SERVICE: 04/16/2020 SUBJECTIVE: This patient was seen on morning rounds. The patient is an 79-year-old female, hospital day #5, post injury day #5, history of atrial fibrillation, fall with operative repair to a right intertrochanteric femur, also history of necrotic wound on left side of her face that was biopsied and showed basal cell carcinoma. The patient is sitting up in bed. States that she has no pain at this time. She has had bowel movements and is voiding. We are pending approval for [facility] that we are waiting that she has been approved for. OBJECTIVE: VITAL SIGNS: Temperature 97.8 Fahrenheit, pulse 100, respiratory rate 18, O2 saturation 95 on room air, and blood pressure 124/77. GENERAL: An 79-year-old female, sitting up in no acute distress. HEENT: She has left-sided facial droop and dressings noted at the left side of the face and neck. Trachea is midline. RESPIRATORY: Equal rise and fall. No respiratory distress. CARDIOVASCULAR: Regular rhythm. NEUROLOGIC: Alert and oriented. GCS is 15. PSYCHIATRIC: Normal mood and affect. LABORATORY FINDINGS: No new laboratory findings. ASSESSMENT: 1. Status post fall on Coumadin. 2. Right intertrochanteric femur fracture status post open reduction and internal fixation. 3. Atrial fibrillation with rapid ventricular response, improved rate control. 4. Necrotic left-sided neck and face wound likely neoplastic wound, basal cell carcinoma. 5. History of hypertension, squamous cell carcinoma of the left neck in 2008, and acute blood loss anemia. PLAN: 1. Discussed with Heme/Onc, who notes that their recommendation is hospice for this patient. 2. Continue pain regimen. 3. The patient has been referred to [facility], she will be discharged likely today or tomorrow. 4. Hemoglobin has been stable, bridging her Lovenox back to Coumadin, Pharmacy to dose. 5. Continue supportive care. This patient was seen on morning rounds with Dr. Arroyo. We discussed the plan with patient and family, who are in agreement. Job ID: [id number]
--- NOTE | 2020-04-16 13:45 | PDOC.MOPN ---
- Vital Signs Vital Signs: Vital Signs (12 hours) Temp Pulse Resp BP Pulse Ox 04/16/20 07:36 97.8 F 100 18 124/77 95 04/16/20 05:04 98.2 F 92 18 121/60 94 L Weight Admit Weight 164 lb 14.4 oz Weight 164 lb 14.4 oz - Labs Result Diagrams: 04/15/20 05:12 04/14/20 04:50 Status: lab reviewed by me - Pathology Pathology: basal cell carcinoma A/P - Problem (1) Basal cell carcinoma Current Visit: Yes Code(s): C44.91 - BASAL CELL CARCINOMA OF SKIN, UNSPECIFIED Status: Acute - Plan Plan: Patient has a left neglected, invasive, necrotic lesion of neck and face with left facial droop and eye changes. Pathology indicates basal cell carcinoma. Patient had hip repair after mechanical fall and is ready for discharge. Primary treatment was resection and radiation. This lesion is likely metastatic, unresectable, and not amenable to radiation. Surprisingly, path shows basal cell carcinoma. Vismodegib is a hedge-hog inhibitor given for metastatic basal cell carcinoma. She can follow-up in outpatient clinic to discuss further with Dr. Bowling. Hospice is also a reasonable choice as care is likely palliative.
[2020-04-16] MEDS: Warfarin Sodium 5 MG TAB PO SCH (16:14)
--- NOTE | 2020-04-17 00:57 | PRG ---
DATE OF SERVICE: 04/16/2020 SUBJECTIVE: This is an 79-year-old female, hospital day 5, status post fall resulting in right intertrochanteric femur fracture. This has since been repaired. The patient was diagnosed with basal cell carcinoma during this hospitalization. Upon my evaluation this evening, nursing vocalized no concerns. OBJECTIVE: VITAL SIGNS: Reviewed and as documented in the electronic medical record. GENERAL: The patient resting in bed. Eyes closed. Appears comfortable. Normal work of breathing. Symmetric rise. ASSESSMENT AND PLAN: As documented in the progress note dated 04/16/2020. Continue supportive care as ordered. Job ID: [id number]
[2020-04-17] MEDS: Acetaminophen 500 MG TAB PO SCH ×2 (05:50→11:38)
[2020-04-17] MEDS: traMADol HCl 50 MG TAB PO SCH ×2 (05:51→11:39)
[2020-04-17] MEDS: Senokot S 8.6-50 MG TAB PO SCH (09:16)
[2020-04-17] MEDS: Polyethylene Glycol 3350 17 GM Packet PO SCH (09:17)
[2020-04-17] MEDS: Ferrous Sulfate 325 MG TAB PO SCH (09:18)
[2020-04-17] MEDS: Gabapentin 100 MG CAP PO SCH ×2 (09:18→15:20)
[2020-04-17] MEDS: Ascorbic Acid 500 mg Chewable Tablet PO SCH (09:20)
[2020-04-17] MEDS: Famotidine 20 MG TAB PO SCH (09:21)
[2020-04-17] MEDS: Metoprolol Tartrate 25 MG TAB PO SCH (09:22)
[2020-04-17] MEDS: Enoxaparin Sodium 80 MG/0.8 ML SYRINGE SC SCH (09:22)
[2020-04-17 09:48] LABS: INR-International Normal Ratio 1.5; Prothrombin Time 18.8 sec (12.0-14.7)
[2020-04-17 15:26] VITALS: BP 129/59; TEMP 98
== END 2020-04-17 16:42 | DRG 481 ==
LOC: ERS 00:21 → 2NO 02:37 → SJJU 04-12 15:15
PROVIDERS: ADMIT Specialist; ATTEND Specialist
PROC: 0QS606Z Reposition Right Upper Femur with Intramedullary Internal Fixation Device, Open Approach (ICD-10-PCS; principal; 2020-04-12)
PROC: 0JB53ZX Excision of Left Neck Subcutaneous Tissue and Fascia, Percutaneous Approach, Diagnostic (ICD-10-PCS; 2020-04-12)
DX: S72.141A Displaced intertrochanteric fracture of right femur, initial encounter for closed fracture (principal); D62 Acute posthemorrhagic anemia; E87.1 Hypo-osmolality and hyponatremia; I48.91 Unspecified atrial fibrillation; W01.0XXA Fall on same level from slipping, tripping and stumbling without subsequent striking against object, initial encounter; G51.0 Bell's palsy; I10 Essential (primary) hypertension; C76.0 Malignant neoplasm of head, face and neck; R73.9 Hyperglycemia, unspecified; Z51.5 Encounter for palliative care; Z20.828 Contact with and (suspected) exposure to other viral communicable diseases; Z90.49 Acquired absence of other specified parts of digestive tract; Z79.01 Long term (current) use of anticoagulants; Z79.899 Other long term (current) drug therapy
CPT/HCPCS: 36415; 70450; 71045; 72170; 76000; 80048; 80053; 82607; 82728; 82746; 83036; 83540; 83550; 83605; 83735; 84100; 85025; 85027; 85610; 85730; 87040; 87635; 88307; 93005; 93010; 93306; 94760; 96365; 96366; 96374; 96375; C1713; G0390; J0690; J1100; J1650; J2405; J2550; J2704; J3010; J3430; J3475; J3490; J7030; J7050; S0028; U0002; U0003